=== PATIENT | male | born 1960 | race African-American/Black ===

== ENCOUNTER 2017-10-06 21:33 | Inpatient (IN) | payer BC ==
[~2017-10-06] VITALS: Ht 182.9 cm; Wt 64.3 kg
[2017-10-06 23:05] LABS: HEMATOCRIT 22.7 % (38.0-50.0); MCH 32.8 PG (29.0-34.0); MCHC 35.2 G/DL (30.0-36.0); MEAN PLAT.VOLUME 11.2 uM^3 (9.0-12.4); PLATELET COUNT 270 K/uL (156-360); RBC DIS.WIDTH-CV 19.6 % (11.8-14.6); RBC DIS.WIDTH-SD 65.9 % (39-53); RED BLOOD COUNT 2.44 M/uL (4.00-5.50); WHITE BLOOD COUNT 6.5 K/uL (4.1-10.2)
[2017-10-06 23:13] LABS: INTER. NORMALIZED RATIO 1.2; PROTHROMBIN TIME 13.7 SEC (10.2-12.9)
[2017-10-06 23:15] LABS: CHLORIDE 112 mEq/L (99-109); POTASSIUM 5.6 mEq/L (3.7-5.4); SODIUM 138 mEq/L (136-147)
[2017-10-06 23:18] LABS: GLUCOSE 100 mg/dL (70-99)
[2017-10-06 23:19] LABS: ANION GAP 6 MEQ/L (2-14)
[2017-10-06 23:21] LABS: ALKALINE PHOSPHATASE 217 IU/L (3-129); GFR ESTIMATE (CALCULATED) 24 mL/min/
[2017-10-06 23:22] LABS: UREA NITROGEN (BUN) 51 mg/dL (9-23)
[2017-10-06 23:23] LABS: DIRECT BILIRUBIN 0.6 mg/dL (0.0-0.3)
[2017-10-06 23:25] LABS: LIPASE 42 U/L (1.0-51.0)
[2017-10-07] VITALS (14 sets, daily range): BP systolic 92–140; BP diastolic 50–84
[2017-10-07] MEDS ORDERED: PANTOPRAZOLE SO40 MG PO (01:02)
[2017-10-07] MEDS ORDERED: MARINOL2.5 M1 PO (01:03)
[2017-10-07] MEDS ORDERED: ZOFRAN4 MG PO (01:05)
[2017-10-07] MEDS ORDERED: DILAUDID4 MG PO (01:07)
[2017-10-07 08:02] LABS: HEMATOCRIT 23.4 % (38.0-50.0); MCH 33.7 PG (29.0-34.0); MCV 96.3 FL (86-99); MEAN PLAT.VOLUME 11.5 uM^3 (9.0-12.4); PLATELET COUNT 216 K/uL (156-360); RBC DIS.WIDTH-CV 20.1 % (11.8-14.6); RBC DIS.WIDTH-SD 69.9 % (39-53); RED BLOOD COUNT 2.43 M/uL (4.00-5.50); WHITE BLOOD COUNT 5.9 K/uL (4.1-10.2)
[2017-10-07 08:03] LABS: BASOPHIL COUNT 0.1 K/uL (0-0.1); EOSINOPHIL (%) 2.4 % (0-5); EOSINOPHIL COUNT 0.1 K/uL (0-0.3); IMMATURE GRANULOCYTE (%) 0.3 % (0.0-0.7); INSTRUMENT ABS NEUTROPHIL CT 3.9 K/uL; LYMPHOCYTE COUNT 1.3 K/uL (1.0-2.8); MONOCYTE (%) 8.1 % (3-12); MONOCYTE COUNT 0.5 K/uL (0-0.8); NEUTROPHIL (%) 66.5 % (45-76); NEUTROPHIL COUNT 3.9 K/uL (1.8-6.4)
[2017-10-07 08:27] LABS: ANION GAP 10 MEQ/L (2-14); CHLORIDE 109 MEQ/L (99-109); GFR ESTIMATE (CALCULATED) 27 mL/min/; GLUCOSE 76 mg/dL (70-99); POTASSIUM 5.6 MEQ/L (3.7-5.4); SAMPLE HEMOLYSIS CHECK 0; SAMPLE ICTERIC CHECK 0; SAMPLE LIPEMIA CHECK 0; SODIUM 139 MEQ/L (136-147); UREA NITROGEN (BUN) 48 mg/dL (9-23)
[2017-10-07 18:42] LABS: METH RESISTANT S AUREUS PCR NEGATIVE (NEGATIVE)
[2017-10-07 18:50] LABS: PROBE CHECK PASS; SPECIMEN PROCESSING CONTROL PASS
[2017-10-08] VITALS (22 sets, daily range): BP systolic 97–132; BP diastolic 60–93
[2017-10-08 00:42] LABS: HEMATOCRIT 34.5 % (38.0-50.0); MCV 95.6 FL (86-99)
[2017-10-08 00:49] LABS: ADD MIUA? YES; BILIRUBIN NEGATIVE; BLOOD NEGATIVE; COLOR YELLOW ((YELLOW)); GLUCOSE (STRIP) NEGATIVE; KETONES NEGATIVE; LEUKOCYTES NEGATIVE; NITRITE NEGATIVE; PROTEIN (STRIP) NEGATIVE; SPECIFIC GRAVITY 1.011 (1.000-1.030); UROBILINOGEN 0.2 MG/DL (0.2-1.0)
[2017-10-08 01:08] LABS: AMORPHOUS URATES CRYSTALS 3+; BACTERIA 3+ /HPF; CASTS PRESENT /LPF; CRYSTALS PRESENT; EPITHELIAL CELLS 1+ /HPF; HYALINE CASTS 0-5 /LPF; MUCUS 2+ /LPF; RED BLOOD CELLS 0-5 /HPF (0-5); WHITE BLOOD CELLS 0-5 /HPF (0-5)
[2017-10-08 01:54] LABS: UR CREATININE CONCENTRATION 104.3 MG/DL
[2017-10-08 07:24] LABS: EOSINOPHIL (%) 2.6 % (0-5); EOSINOPHIL COUNT 0.2 K/uL (0-0.3); HEMATOCRIT 29.2 % (38.0-50.0); IMMATURE GRANULOCYTE (%) 0.3 % (0.0-0.7); INSTRUMENT ABS NEUTROPHIL CT 5.2 K/uL; LYMPHOCYTE COUNT 1.4 K/uL (1.0-2.8); MCH 31.4 PG (29.0-34.0); MCHC 34.2 G/DL (30.0-36.0); MCV 91.8 FL (86-99); MEAN PLAT.VOLUME 11.5 uM^3 (9.0-12.4); MONOCYTE (%) 7.1 % (3-12); MONOCYTE COUNT 0.5 K/uL (0-0.8); NEUTROPHIL (%) 70.3 % (45-76); NEUTROPHIL COUNT 5.2 K/uL (1.8-6.4); PLATELET COUNT 223 K/uL (156-360); RBC DIS.WIDTH-CV 18.9 % (11.8-14.6); RBC DIS.WIDTH-SD 61.1 % (39-53); WHITE BLOOD COUNT 7.3 K/uL (4.1-10.2)
[2017-10-08 07:48] LABS: RED BLOOD COUNT 3.18 M/uL (4.00-5.50)
[2017-10-08 07:50] LABS: HEMATOCRIT 29.2 % (38.0-50.0); MCV 91.3 FL (86-99)
[2017-10-08 07:51] LABS: ANION GAP 6 MEQ/L (2-14); ANION GAP 7 MEQ/L (2-14); CHLORIDE 110 MEQ/L (99-109); MAGNESIUM 1.4 mg/dl (1.3-2.7); POTASSIUM 5.5 MEQ/L (3.7-5.4); SAMPLE HEMOLYSIS CHECK 0; SAMPLE ICTERIC CHECK 0; SAMPLE LIPEMIA CHECK 0; SODIUM 138 MEQ/L (136-147); TOTAL BILIRUBIN 1.4 MG/DL (0.0-1.0)
[2017-10-08 07:57] LABS: GFR ESTIMATE (CALCULATED) 27 mL/min/; UREA NITROGEN (BUN) 49 mg/dL (9-23)
[2017-10-08 08:00] LABS: ALKALINE PHOSPHATASE 150 IU/L (3-129); GFR ESTIMATE (CALCULATED) 28 mL/min/; UREA NITROGEN (BUN) 50 mg/dL (9-23)
[2017-10-08 08:09] LABS: GLUCOSE 151 mg/dL (70-99); GLUCOSE 153 mg/dL (70-99)
[2017-10-08 16:05] LABS: HEMATOCRIT 30.4 % (38.0-50.0); MCV 93.3 FL (86-99)
[2017-10-08 19:45] LABS: HEMATOCRIT 31.3 % (38.0-50.0); MCV 93.4 FL (86-99)
[2017-10-09] VITALS (24 sets, daily range): BP systolic 96–128; BP diastolic 60–88
[2017-10-09 00:29] LABS: MCV 90.9 FL (86-99)
[2017-10-09 00:44] LABS: CHLORIDE 110 mEq/L (99-109); POTASSIUM 4.6 mEq/L (3.7-5.4); SODIUM 139 mEq/L (136-147)
[2017-10-09 00:46] LABS: GLUCOSE 117 mg/dL (70-99)
[2017-10-09 00:47] LABS: ANION GAP 9 MEQ/L (2-14)
[2017-10-09 00:50] LABS: GFR ESTIMATE (CALCULATED) 27 mL/min/
[2017-10-09 00:51] LABS: UREA NITROGEN (BUN) 46 mg/dL (9-23)
[2017-10-09 10:22] LABS: HEMATOCRIT 26.6 % (38.0-50.0); MCH 32.5 PG (29.0-34.0); MEAN PLAT.VOLUME 11.6 uM^3 (9.0-12.4); PLATELET COUNT 196 K/uL (156-360); RBC DIS.WIDTH-CV 18.7 % (11.8-14.6); RBC DIS.WIDTH-SD 62.8 % (39-53); RED BLOOD COUNT 2.86 M/uL (4.00-5.50); WHITE BLOOD COUNT 6.9 K/uL (4.1-10.2)
[2017-10-09 11:00] LABS: ANION GAP 9 MEQ/L (2-14); CHLORIDE 108 MEQ/L (99-109); GFR ESTIMATE (CALCULATED) 28 mL/min/; GLUCOSE 113 mg/dL (70-99); POTASSIUM 5.1 MEQ/L (3.7-5.4); SAMPLE HEMOLYSIS CHECK 0; SAMPLE ICTERIC CHECK 0; SAMPLE LIPEMIA CHECK 0; SODIUM 139 MEQ/L (136-147); UREA NITROGEN (BUN) 46 mg/dL (9-23)
[2017-10-09 16:07] LABS: HEMATOCRIT 28.8 % (38.0-50.0); MCV 94.7 FL (86-99)
[2017-10-10] VITALS (20 sets, daily range): BP systolic 87–133; BP diastolic 52–84
[2017-10-10 00:43] LABS: HEMATOCRIT 28.1 % (38.0-50.0); MCV 97.2 FL (86-99)
[2017-10-10 07:12] LABS: EOSINOPHIL (%) 2.5 % (0-5); EOSINOPHIL COUNT 0.2 K/uL (0-0.3); HEMATOCRIT 26.7 % (38.0-50.0); IMMATURE GRANULOCYTE (%) 0.3 % (0.0-0.7); INSTRUMENT ABS NEUTROPHIL CT 4.6 K/uL; LYMPHOCYTE COUNT 1.5 K/uL (1.0-2.8); MCHC 33.3 G/DL (30.0-36.0); MEAN PLAT.VOLUME 11.4 uM^3 (9.0-12.4); MONOCYTE (%) 6.4 % (3-12); MONOCYTE COUNT 0.4 K/uL (0-0.8); NEUTROPHIL (%) 68.2 % (45-76); NEUTROPHIL COUNT 4.6 K/uL (1.8-6.4); PLATELET COUNT 184 K/uL (156-360); RBC DIS.WIDTH-CV 18.4 % (11.8-14.6); RED BLOOD COUNT 2.87 M/uL (4.00-5.50); WHITE BLOOD COUNT 6.7 K/uL (4.1-10.2)
[2017-10-10 07:28] LABS: ANION GAP 8 MEQ/L (2-14); CHLORIDE 108 MEQ/L (99-109); GFR ESTIMATE (CALCULATED) 27 mL/min/; GLUCOSE 118 mg/dL (70-99); POTASSIUM 4.9 MEQ/L (3.7-5.4); SAMPLE HEMOLYSIS CHECK 0; SAMPLE ICTERIC CHECK 0; SAMPLE LIPEMIA CHECK 0; SODIUM 139 MEQ/L (136-147); UREA NITROGEN (BUN) 44 mg/dL (9-23)
[2017-10-10 15:50] LABS: HEMATOCRIT 26.2 % (38.0-50.0); MCV 95.3 FL (86-99)
[2017-10-11] VITALS: BP 105/49
[2017-10-11 00:43] LABS: HEMATOCRIT 25.5 % (38.0-50.0); MCV 92.7 FL (86-99)
[2017-10-11 04:00] VITALS: BP 92/58
[2017-10-11 06:56] LABS: BASOPHIL COUNT 0.1 K/uL (0-0.1); EOSINOPHIL (%) 3.7 % (0-5); EOSINOPHIL COUNT 0.2 K/uL (0-0.3); HEMATOCRIT 25.6 % (38.0-50.0); IMMATURE GRANULOCYTE (%) 0.3 % (0.0-0.7); INSTRUMENT ABS NEUTROPHIL CT 3.6 K/uL; LYMPHOCYTE COUNT 1.5 K/uL (1.0-2.8); MCH 32.7 PG (29.0-34.0); MCHC 34.8 G/DL (30.0-36.0); MCV 94.1 FL (86-99); MEAN PLAT.VOLUME 11.6 uM^3 (9.0-12.4); MONOCYTE (%) 9.3 % (3-12); MONOCYTE COUNT 0.6 K/uL (0-0.8); NEUTROPHIL (%) 60.5 % (45-76); NEUTROPHIL COUNT 3.6 K/uL (1.8-6.4); PLATELET COUNT 171 K/uL (156-360); RBC DIS.WIDTH-CV 18.7 % (11.8-14.6); RBC DIS.WIDTH-SD 63.5 % (39-53); RED BLOOD COUNT 2.72 M/uL (4.00-5.50)
[2017-10-11 06:57] LABS: HEMATOCRIT 25.3 % (38.0-50.0); MCV 93.7 FL (86-99)
[2017-10-11 08:00] VITALS: BP 97/54
[2017-10-11 08:02] LABS: ANION GAP 7 MEQ/L (2-14); CHLORIDE 105 MEQ/L (99-109); GFR ESTIMATE (CALCULATED) 25 mL/min/; GLUCOSE 120 mg/dL (70-99); SAMPLE HEMOLYSIS CHECK 0; SAMPLE ICTERIC CHECK 0; SAMPLE LIPEMIA CHECK 0; SODIUM 136 MEQ/L (136-147); UREA NITROGEN (BUN) 41 mg/dL (9-23)
[2017-10-11 09:39] LABS: ALKALINE PHOSPHATASE 135 IU/L (3-129); DIRECT BILIRUBIN 0.3 mg/dL (0.0-0.3)
[2017-10-11 09:44] LABS: TOTAL BILIRUBIN 0.9 MG/DL (0.0-1.0)
[2017-10-11 12:00] VITALS: BP 103/66
[2017-10-11 16:00] VITALS: BP 112/70
[2017-10-11 16:17] LABS: MCV 94.3 FL (86-99)
[2017-10-11 20:00] VITALS: BP 107/64
[2017-10-12 00:39] LABS: HEMATOCRIT 28.8 % (38.0-50.0); MCV 92.9 FL (86-99)
[2017-10-12 04:00] VITALS: BP 112/67
[2017-10-12 05:17] LABS: HEMATOCRIT 24.9 % (38.0-50.0); MCV 92.2 FL (86-99)
[2017-10-12 05:53] LABS: ANION GAP 6 MEQ/L (2-14); CHLORIDE 101 MEQ/L (99-109); GFR ESTIMATE (CALCULATED) 28 mL/min/; GLUCOSE 125 mg/dL (70-99); POTASSIUM 4.4 MEQ/L (3.7-5.4); SAMPLE HEMOLYSIS CHECK 0; SAMPLE ICTERIC CHECK 0; SAMPLE LIPEMIA CHECK 0; SODIUM 134 MEQ/L (136-147); UREA NITROGEN (BUN) 38 mg/dL (9-23)
[2017-10-12 08:00] VITALS: BP 117/77
[2017-10-12 11:51] LABS: BASOPHIL COUNT 0.1 K/uL (0-0.1); EOSINOPHIL (%) 2.4 % (0-5); EOSINOPHIL COUNT 0.2 K/uL (0-0.3); HEMATOCRIT 29.7 % (38.0-50.0); IMMATURE GRANULOCYTE (%) 0.5 % (0.0-0.7); INSTRUMENT ABS NEUTROPHIL CT 4.3 K/uL; LYMPHOCYTE COUNT 1.6 K/uL (1.0-2.8); MCH 32.1 PG (29.0-34.0); MCHC 33.7 G/DL (30.0-36.0); MCV 95.2 FL (86-99); MEAN PLAT.VOLUME 11.8 uM^3 (9.0-12.4); MONOCYTE (%) 7.7 % (3-12); MONOCYTE COUNT 0.5 K/uL (0-0.8); NEUTROPHIL (%) 64.7 % (45-76); NEUTROPHIL COUNT 4.3 K/uL (1.8-6.4); PLATELET COUNT 156 K/uL (156-360); RBC DIS.WIDTH-SD 66.1 % (39-53); RED BLOOD COUNT 3.12 M/uL (4.00-5.50); WHITE BLOOD COUNT 6.6 K/uL (4.1-10.2)
[2017-10-12 12:00] VITALS: BP 98/56
[2017-10-12 16:00] VITALS: BP 113/72
[2017-10-12 16:09] LABS: HEMATOCRIT 24.5 % (38.0-50.0); MCV 93.5 FL (86-99)
[2017-10-12 19:00] VITALS: BP 93/54
[2017-10-12 21:47] LABS: EOSINOPHIL (%) 2.7 % (0-5); EOSINOPHIL COUNT 0.2 K/uL (0-0.3); HEMATOCRIT 24.8 % (38.0-50.0); IMMATURE GRANULOCYTE (%) 0.4 % (0.0-0.7); INSTRUMENT ABS NEUTROPHIL CT 3.5 K/uL; LYMPHOCYTE COUNT 1.4 K/uL (1.0-2.8); MCH 32.1 PG (29.0-34.0); MCHC 34.3 G/DL (30.0-36.0); MCV 93.6 FL (86-99); MEAN PLAT.VOLUME 11.3 uM^3 (9.0-12.4); MONOCYTE (%) 7.6 % (3-12); MONOCYTE COUNT 0.4 K/uL (0-0.8); NEUTROPHIL (%) 63.5 % (45-76); NEUTROPHIL COUNT 3.5 K/uL (1.8-6.4); PLATELET COUNT 172 K/uL (156-360); RBC DIS.WIDTH-CV 18.4 % (11.8-14.6); RBC DIS.WIDTH-SD 62.3 % (39-53); RED BLOOD COUNT 2.65 M/uL (4.00-5.50); WHITE BLOOD COUNT 5.5 K/uL (4.1-10.2)
[2017-10-12 21:57] LABS: ANION GAP 5 MEQ/L (2-14); CHLORIDE 99 MEQ/L (99-109); POTASSIUM 4.4 MEQ/L (3.7-5.4); SAMPLE HEMOLYSIS CHECK 0; SAMPLE ICTERIC CHECK 0; SAMPLE LIPEMIA CHECK 0; SODIUM 133 MEQ/L (136-147)
[2017-10-12 22:03] LABS: GFR ESTIMATE (CALCULATED) 30 mL/min/; GLUCOSE 119 mg/dL (70-99); UREA NITROGEN (BUN) 36 mg/dL (9-23)
[2017-10-13] VITALS (13 sets, daily range): BP systolic 00–121; BP diastolic 00–75
[2017-10-13 00:35] LABS: HEMATOCRIT 21.9 % (38.0-50.0); MCV 91.3 FL (86-99)
[2017-10-13 09:10] LABS: ANION GAP 7 MEQ/L (2-14); CHLORIDE 98 MEQ/L (99-109); GFR ESTIMATE (CALCULATED) 30 mL/min/; GLUCOSE 112 mg/dL (70-99); POTASSIUM 4.8 MEQ/L (3.7-5.4); SAMPLE HEMOLYSIS CHECK 0; SAMPLE ICTERIC CHECK 0; SAMPLE LIPEMIA CHECK 0; SODIUM 134 MEQ/L (136-147); UREA NITROGEN (BUN) 39 mg/dL (9-23)
[2017-10-13 16:07] LABS: HEMATOCRIT 29.8 % (38.0-50.0)
[2017-10-14] VITALS (21 sets, daily range): BP systolic 83–124; BP diastolic 44–86
[2017-10-14 01:33] LABS: EOSINOPHIL COUNT 0.1 K/uL (0-0.3); IMMATURE GRANULOCYTE (%) 0.4 % (0.0-0.7); INSTRUMENT ABS NEUTROPHIL CT 5.4 K/uL; MCH 31.5 PG (29.0-34.0); MCHC 35.5 G/DL (30.0-36.0); MCV 88.7 FL (86-99); MEAN PLAT.VOLUME 11.6 uM^3 (9.0-12.4); MONOCYTE (%) 5.5 % (3-12); MONOCYTE COUNT 0.4 K/uL (0-0.8); NEUTROPHIL (%) 67.4 % (45-76); NEUTROPHIL COUNT 5.4 K/uL (1.8-6.4); PLATELET COUNT 173 K/uL (156-360); RBC DIS.WIDTH-CV 17.5 % (11.8-14.6); RED BLOOD COUNT 2.48 M/uL (4.00-5.50)
[2017-10-14 09:57] LABS: ANION GAP 9 MEQ/L (2-14); CHLORIDE 101 MEQ/L (99-109); POTASSIUM 4.9 MEQ/L (3.7-5.4); SAMPLE HEMOLYSIS CHECK 0; SAMPLE ICTERIC CHECK 0; SAMPLE LIPEMIA CHECK 0; SODIUM 136 MEQ/L (136-147)
[2017-10-14 10:02] LABS: GFR ESTIMATE (CALCULATED) 28 mL/min/; GLUCOSE 85 mg/dL (70-99); UREA NITROGEN (BUN) 47 mg/dL (9-23)
[2017-10-14 12:45] LABS: HEMATOCRIT 27.1 % (38.0-50.0); MCH 31.2 PG (29.0-34.0); MCHC 36.5 G/DL (30.0-36.0); MCV 85.5 FL (86-99); MEAN PLAT.VOLUME 11.5 uM^3 (9.0-12.4); PLATELET COUNT 152 K/uL (156-360); RBC DIS.WIDTH-CV 16.1 % (11.8-14.6); RBC DIS.WIDTH-SD 48.4 % (39-53); RED BLOOD COUNT 3.17 M/uL (4.00-5.50); WHITE BLOOD COUNT 7.3 K/uL (4.1-10.2)
== END 2017-10-14 21:49 | disposition short-term general hospital (02) | DRG 368 ==
LOC: EDBD 21:33 → EME 21:33 → EDOF 10-07 02:57 → 4WEST 10-07 02:57 → 4EAST 10-07 02:57 → ENRESERV 10-07 03:03 → 4EAST 10-07 05:21 → ENRESERV 10-07 16:12 → CANRESERV 10-07 16:12 → ENRESERV 10-07 16:26 → 4WEST 10-07 16:51 → ENRESERV 10-10 21:28 → 4WEST 10-11 16:06 → ENRESERV 10-12 15:55 → CANRESERV 10-12 16:15 → 4WEST 10-14 08:04
PROVIDERS: Emergency Medicine; Hospitalist; Internal Medicine; Internal Medicine Critical Care Medicine; Internal Medicine Gastroenterology; Internal Medicine Nephrology; Surgery
PROC: 30233N1 Transfusion of Nonautologous Red Blood Cells into Peripheral Vein, Percutaneous Approach (ICD-10-PCS; principal; 2017-10-07)
PROC: 06L38CZ Occlusion of Esophageal Vein with Extraluminal Device, Via Natural or Artificial Opening Endoscopic (ICD-10-PCS; principal; 2017-10-07)
PROC: 0W9G30Z Drainage of Peritoneal Cavity with Drainage Device, Percutaneous Approach (ICD-10-PCS; principal; 2017-10-07)
PROC: 0W9G30Z Drainage of Peritoneal Cavity with Drainage Device, Percutaneous Approach (ICD-10-PCS; 2017-10-09)
PROC: 0W9G30Z Drainage of Peritoneal Cavity with Drainage Device, Percutaneous Approach (ICD-10-PCS; 2017-10-13)
PROC: 0DJ08ZZ Inspection of Upper Intestinal Tract, Via Natural or Artificial Opening Endoscopic (ICD-10-PCS; 2017-10-13)
DX: I85.01 Esophageal varices with bleeding (principal); N17.9 Acute kidney failure, unspecified; K76.7 Hepatorenal syndrome; K72.00 Acute and subacute hepatic failure without coma; R18.8 Other ascites; K76.6 Portal hypertension; E86.0 Dehydration; E87.2 Acidosis; E87.5 Hyperkalemia; D62 Acute posthemorrhagic anemia; K83.8 Other specified diseases of biliary tract; C79.51 Secondary malignant neoplasm of bone; C78.00 Secondary malignant neoplasm of unspecified lung; C79.70 Secondary malignant neoplasm of unspecified adrenal gland; C78.7 Secondary malignant neoplasm of liver and intrahepatic bile duct; J95.88 Other intraoperative complications of respiratory system, not elsewhere classified; J93.82 Other air leak; Y84.8 Other medical procedures as the cause of abnormal reaction of the patient, or of later complication, without mention of misadventure at the time of the procedure; Y81.8 Miscellaneous general- and plastic-surgery devices associated with adverse incidents, not elsewhere classified; Y92.238 Other place in hospital as the place of occurrence of the external cause; K74.60 Unspecified cirrhosis of liver; K63.9 Disease of intestine, unspecified; K22.70 Barrett's esophagus without dysplasia; N20.0 Calculus of kidney; B19.20 Unspecified viral hepatitis C without hepatic coma; Q63.0 Accessory kidney; Z85.05 Personal history of malignant neoplasm of liver; Z87.442 Personal history of urinary calculi; Z92.21 Personal history of antineoplastic chemotherapy; Z92.3 Personal history of irradiation
CPT/HCPCS: 49083; 74176; 76770; 80048; 80048 91; 80053; 80069; 80076; 81003; 82140; 82533 91; 82570; 83690; 83735; 84100; 84156; 85014; 85018; 85025; 85025 91; 85027; 85610; 86850; 86900; 86901; 86920; 87641; 94799; 99281; 99285; C9113; J0696; J1170; J2354; J2405; J2710; J2765; J7030; J7050; J7070; J7120; P9016; P9047; Q0167

== ENCOUNTER 2017-10-26 23:14 | Emergency (ER) | payer BC ==
[~2017-10-26] VITALS: Ht 182.9 cm; Wt 56.8 kg
[~2017-10-26 23:14] MED LIST: DILAUDID4 MG PO; MARINOL2.5 M1 PO; PANTOPRAZOLE SO40 MG PO; ZOFRAN4 MG PO
[2017-10-27 00:37] LABS: HEMATOCRIT 21.4 % (38.0-50.0); MCH 31.3 PG (29.0-34.0); MCHC 34.1 G/DL (30.0-36.0); MEAN PLAT.VOLUME 12.2 uM^3 (9.0-12.4); RBC DIS.WIDTH-CV 19.1 % (11.8-14.6); RBC DIS.WIDTH-SD 56.9 % (39-53); WHITE BLOOD COUNT 8.1 K/uL (4.1-10.2)
[2017-10-27 00:38] LABS: MCV 91.8 FL (86-99); PLATELET COUNT 239 K/uL (156-360); RED BLOOD COUNT 2.33 M/uL (4.00-5.50)
[2017-10-27 00:48] LABS: CHLORIDE 107 mEq/L (99-109); SODIUM 138 mEq/L (136-147)
[2017-10-27 00:50] LABS: GLUCOSE 84 mg/dL (70-99)
[2017-10-27 00:51] LABS: ANION GAP 12 MEQ/L (2-14)
[2017-10-27 00:54] LABS: GFR ESTIMATE (CALCULATED) 15 mL/min/
[2017-10-27 00:55] LABS: UREA NITROGEN (BUN) 98 mg/dL (9-23)
[2017-10-27 00:58] LABS: POTASSIUM 6.5 mEq/L (3.7-5.4)
[2017-10-27 02:27] VITALS: BP 96/63
[2017-10-27 02:49] LABS: TOTAL BILIRUBIN 1.3 mg/dL (0.0-1.0)
[2017-10-27 02:50] LABS: ALKALINE PHOSPHATASE 227 IU/L (3-129)
[2017-10-27 02:52] LABS: DIRECT BILIRUBIN 0.9 mg/dL (0.0-0.3)
[2017-10-27 03:49] VITALS: BP 97/63
[2017-10-27 04:21] VITALS: BP 108/67
== END 2017-10-27 04:27 | disposition short-term general hospital (02) ==
LOC: EME 23:14
PROVIDERS: Emergency Medicine
DX: K92.2 Gastrointestinal hemorrhage, unspecified (principal); D64.9 Anemia, unspecified; N17.9 Acute kidney failure, unspecified; C22.0 Liver cell carcinoma; C78.02 Secondary malignant neoplasm of left lung; C78.01 Secondary malignant neoplasm of right lung; E87.5 Hyperkalemia; K21.9 Gastro-esophageal reflux disease without esophagitis; F32.9 Major depressive disorder, single episode, unspecified; Z88.8 Allergy status to other drugs, medicaments and biological substances
CPT/HCPCS: 80048; 80076; 82140; 85027; 86850; 86900; 86901; 86920; 93005; 99281; 99285; C9113; J0696; J2354; J3010; J7050; J7120; P9016